=== PATIENT | female | born 1985 | race Caucasian/White ===

== ENCOUNTER 2017-07-02 16:06 | Emergency (ER) | payer BC ==
--- NOTE | 2017-07-02 18:26 | ED ---
- HPI Summary HPI Summary: 32 F at 7 weeks LMP may 10 at presents with vaginal bleeding and cramping for past 2 days. She states she has been passing clots. She states she is soaking a pad every 2 hours. She denies any dizziness. she denies any nausea vomiting. She denies any dysuria. She denies any flank pain. She states the cramping is intermittent. She has not taken anything for her symptoms. She denies any abnormal vaginal discharge. She has a confirmed by urine stick. She's never had an ultrasound before. She is currently on amoxicillin for uti starting Tuesday and will take last dose tuesday. previous urine culture grew strept b so amoxicillin should work for such. - History of Current Complaint Chief Complaint: EDOBProblems Stated Complaint: BLEEDING/PREG 7WKS Time Seen by Provider: 07/02/17 18:04 Pain Intensity: 2 - Assessment SAB: 0 IEA: 0 - Additional Pertinent History Maternal Blood Type and Rh: O Negative - Allergies/Home Medications Allergies/Adverse Reactions: Allergies Allergy/AdvReac Type Severity Reaction Status Date / Time cefadroxil AdvReac Severe Vomiting Verified 07/02/17 16:34 Home Medications: Home Medications Amoxicillin PO (*) [Amoxicillin 500 MG CAP*] 500 mg PO BID 07/02/17 [History Confirmed 07/02/17] Vit 108/Iron/Folic AC [ One Tablet] 1 each PO DAILY 07/02/17 [ History Confirmed 07/02/17] PMH/Surg Hx/FS Hx/Imm Hx Endocrine/Hematology History: Denies: Hx Anticoagulant Therapy Respiratory History: Reports: Hx Asthma Infectious Disease History: No Infectious Disease History: Denies: Traveled Outside the [place] in Last 30 Days - Family History Known Family History: Positive: Hypertension - Social History Alcohol Use: None Substance Use Type: Reports: None Smoking Status (MU): Never Smoked Tobacco Have You Smoked in the Last Year: No Review of Systems Negative: Fever Negative: Chest Pain Negative: Shortness Of Breath Positive: Abdominal Pain, Other - vaginal bleeding All Other Systems Reviewed And Are Negative: Yes Physical Exam - Physical Exam Triage Information Reviewed: Yes Vital Signs Reviewed: Yes Appearance: Positive: Well-Appearing Skin: Positive: Warm, Dry Head/Face: Positive: Normal Head/Face Inspection Eyes: Positive: Normal, Conjunctiva Clear Respiratory/Lung Sounds: Positive: Clear to Auscultation, Breath Sounds Present Cardiovascular: Positive: Normal, RRR Abdomen Description: Positive: Nontender, Soft Bowel Sounds: Positive: Present Musculoskeletal: Positive: Normal Neurological: Positive: Normal Psychiatric: Positive: Normal - Vaginal Assessment Examined By: Letty Torres Dilation Description: Fingertip Diagnostics - Vital Signs Vital Signs Temp Pulse Resp BP Pulse Ox 07/02/17 16:28 98.7 F 95 16 127/74 98 - Laboratory Result Diagrams: 07/02/17 18:24 07/02/17 18:24 Lab Statement: Any lab studies that have been ordered have been reviewed, and results considered in the medical decision making process. - Ultrasound No standard instances Ultrasound Interpretation: Positive (See Comments) - IMPRESSION: 1. No IUP visualized. Despite absence of a suspicious adnexal region lesion presence of an ectopic is not entirely excluded without a visualized IUP. Correlate with clinical assessment and serial beta-hCG. 2. Thickened endometrium. 3. Negative for free fluid. Ultrasound Interpretation Completed By: Radiologist Course/Dx - Course Course Of Treatment: 32 F at 7 weeks LMP may 10 at presents with vaginal bleeding and cramping for past 2 days. She states she has been passing clots. She states she is soaking a pad every 2 hours. She denies any dizziness. she denies any nausea vomiting. She denies any dysuria. She denies any flank pain. She states the cramping is intermittent. She has not taken anything for her symptoms. She denies any abnormal vaginal discharge. She has a confirmed by urine stick. She's never had an ultrasound before. She is currently on amoxicillin for uti starting Tuesday and will take last dose tuesday. previous urine culture grew strept b so amoxicillin should work for such. On exam abdomen soft nontender. Cervix is a little dilated. HCG is 4000. Urine may be infection but is currently on amoxicillin so will wait for final cultures. Ultrasound does not show an IUP but with amount of bleeding and exam believe that it was a spontaneous miscarriage rather than ectopic. still will have follow-up with OB to trend the . Patient understands agrees with plan. - Differential Diagnosis/HQI/PQRI: Spontaneous , Threatened , UTI , Vaginal Bleeding - Diagnoses Provider Diagnoses: Miscarriage Discharge - Sign-Out/Discharge Documenting (check all that apply): Discharge/Admit/Transfer - Discharge Plan Condition: Good Disposition: HOME Patient Education Materials: Miscarriage (ED) Referrals: No Primary Care Phys,NOPCP [Primary Care Provider] - Additional Instructions: Can take Tylenol for pain every 6 hours Follow up with obgyn on tuesday as will need repeat lab work Return to ED if develop severe abdominal pain, fever, severe bleeding with symptoms such as lightheadedness or any new or worsening symptoms - Billing Disposition and Condition Condition: GOOD Disposition: HOME
[2017-07-02 18:34] LABS: ABS Basophils 0 10^3/ul (0-0.2); ABS Eosinophils 0.2 10^3/ul (0-0.6); ABS Lymphocytes 2.2 10^3/ul (1.0-4.8); ABS Monocytes 0.6 10^3/ul (0-0.8); ABS Neutrophils 8.8 10^3/ul (1.5-7.7); ABS Nucleated RBC 0 10^3/ul; Eosinophil % 1.4 % (0-6); Hematocrit 43 % (35-47); Hemoglobin 14.4 g/dl (12.0-16.0); Lymphocyte % 18.9 % (25-47); Mean Corpuscular HGB Conc 34 g/dl (31-36); Mean Corpuscular Hemoglobin 27 pg (27-31); Mean Corpuscular Volume 80 fL (80-97); Nucleated Red Blood Cells % 0; Platelet Count 155 10^3/ul (150-450); Red Blood Count 5.32 10^6/ul (4.0-5.4); Red Cell Distribution Width 15 % (10.5-15); White Blood Count 11.8 10^3/ul (3.5-10.8)
[2017-07-02 18:43] LABS: INR 0.98 (0.77-1.02)
[2017-07-02 18:58] LABS: EGFR Non-African American 108.2 (>60)
[2017-07-02] MEDS ORDERED: RHO D Immune Globulin (HUMAN)* 300 MCG = 1,500 I.U. INJ IM SCH (19:00)
[2017-07-02 19:44] LABS: Urine Appearance Cloudy; Urine Blood 3+ (Negative); Urine Color Yellow; Urine Ketones Trace (Negative); Urine Protein 2+(100 mg/dL) (Negative); Urine Urobilinogen Negative (Negative)
--- NOTE | 2017-07-02 20:02 | RAD ---
Indication: 7 weeks . Cramping and bleeding. Comparison: No relevant prior exams available on the [facility] [facility] for comparison. Technique: Transvaginal obstetrical ultrasound. Report: No intrauterine gestational sac visualized. Negative for significant fluid within the endometrial cavity. Thickened 2.6 cm endometrium with mildly increased vascularity. Negative for free pelvic fluid. 4.3 x 1.5 x 2.5 cm RIGHT ovary with documented vascular flow is unremarkable. 2.5 x 2.5 x 1.8 cm LEFT ovary with documented vascular flow is unremarkable. No visualized extra ovarian adnexal region lesions evident. IMPRESSION: 1. No IUP visualized. Despite absence of a suspicious adnexal region lesion presence of an ectopic is not entirely excluded without a visualized IUP. Correlate with clinical assessment and serial beta-hCG. 2. Thickened endometrium. 3. Negative for free fluid.
[2017-07-02 20:13] VITALS: BP 123/71
--- NOTE | 2017-07-05 07:10 | ED ---
Progress - Progress Note Progress Note: Patient's urine reveals 10-25,000 of Escherichia coli. Patient was seen for miscarriage. No antibiotics prescribed as patient was afebrile and without any other signs of infectious pathology. With this low count of bacteria in the urine, no antibiotic treatment is necessary at this time. Patient was advised to have close follow-up. No further action at this time. Course/Dx - Course Course Of Treatment: 32 F at 7 weeks LMP may 10 at presents with vaginal bleeding and cramping for past 2 days. She states she has been passing clots. She states she is soaking a pad every 2 hours. She denies any dizziness. she denies any nausea vomiting. She denies any dysuria. She denies any flank pain. She states the cramping is intermittent. She has not taken anything for her symptoms. She denies any abnormal vaginal discharge. She has a confirmed by urine stick. She's never had an ultrasound before. She is currently on amoxicillin for uti starting Tuesday and will take last dose tuesday. previous urine culture grew strept b so amoxicillin should work for such. On exam abdomen soft nontender. Cervix is a little dilated. HCG is 4000. Urine may be infection but is currently on amoxicillin so will wait for final cultures. Ultrasound does not show an IUP but with amount of bleeding and exam believe that it was a spontaneous miscarriage rather than ectopic. still will have follow-up with OB to trend the . Patient understands agrees with plan. - Diagnoses Provider Diagnoses: Miscarriage Discharge - Sign-Out/Discharge Documenting (check all that apply): Post-Discharge Follow Up - Discharge Plan Condition: Good Disposition: HOME Patient Education Materials: Miscarriage (ED) Referrals: No Primary Care Phys,NOPCP [Primary Care Provider] - Additional Instructions: Can take Tylenol for pain every 6 hours Follow up with obgyn on tuesday as will need repeat lab work Return to ED if develop severe abdominal pain, fever, severe bleeding with symptoms such as lightheadedness or any new or worsening symptoms - Billing Disposition and Condition Condition: GOOD Disposition: HOME
== END 2017-07-02 20:25 | disposition home or self-care (01) ==
LOC: ED 16:06
DX: O03.9 Complete or unspecified spontaneous abortion without complication (principal); B96.20 Unspecified Escherichia coli [E. coli] as the cause of diseases classified elsewhere; J45.909 Unspecified asthma, uncomplicated; Z88.1 Allergy status to other antibiotic agents
CPT/HCPCS: 36415; 76817; 80053; 81003; 81015; 84702; 85025; 85610; 85730; 86900; 86901; 87077; 87086; 87186; 87480; 87491; 87510; 87591; 87661; 96372; 99283; J2790

== ENCOUNTER 2018-06-21 18:54 | Emergency (ER) | payer BC ==
[2018-06-21] MEDS ORDERED: NS 0.9% 1000 ML** 1,000 ML IV ONE (20:17)
--- NOTE | 2018-06-21 20:29 | ED ---
Palpitations / Dysrhythmia - HPI Summary HPI Summary: The patient is a 33 year old female who is presenting to the [facility] with a chief complaint of palpitations. The patient states that she has had near syncopal episodes and describes her heart rate as "racing." Other symptoms reported include dizziness, and lightheadedness during the episodes of palpitations. She describes the palpitations as constant, but she is not having an episode at this time. Symptoms are similar to an episode of palpitations in March, however she did not see a provider for the symptoms. No medications are being taken by the patient at this time. Fluid intake is reported to be moral. Symptoms normally occur when the patient is standing as per patient report. Caffeine intake is reported to be 1 coffee a day. Her last physical check up was reported to be at the end of April and was done by her primary care physician. Patient has no PMHx of anxiety or panic attacks. The pain is rated to be _/10 in severity. Symptoms are alleviated by nothing. - History of Current Complaint Chief Complaint: EDDysrhythmPalp Time Seen by Provider: 06/21/18 20:05 Hx Obtained From: Patient Timing: Constant Character: Fast Aggravating: Other - Standing position Alleviating: Nothing Associated Signs & Symptoms: Lightheadedness, Dizzy, Syncope - Near-Syncope - Allergy/Home Medications Allergies/Adverse Reactions: Allergies Allergy/AdvReac Type Severity Reaction Status Date / Time cefadroxil AdvReac Severe Vomiting Verified 06/21/18 18:59 PMH/Surg Hx/FS Hx/Imm Hx Endocrine/Hematology History: Denies: Hx Anticoagulant Therapy Respiratory History: Reports: Hx Asthma Sensory History: Denies: Hx Deafness Opthamlomology History: Denies: Hx Legally Blind EENT History: Denies: Hx Deafness Infectious Disease History: No Infectious Disease History: Denies: Traveled Outside the [place] in Last 30 Days - Family History Known Family History: Positive: Hypertension Family History: FHX reviewed and noncontributory - Social History Occupation: Employed Full-time Lives: With Family Alcohol Use: None Substance Use Type: Reports: None Smoking Status (MU): Never Smoked Tobacco Have You Smoked in the Last Year: No Review of Systems Constitutional: Negative Eyes: Negative ENT: Negative Positive: Palpitations Respiratory: Negative Gastrointestinal: Negative Genitourinary: Negative Musculoskeletal: Negative Skin: Negative Neurological: Other - Lightheadedness; Dizziness Positive: Syncope - Near-Syncope Psychological: Normal All Other Systems Reviewed And Are Negative: Yes Physical Exam - Summary Physical Exam Summary: VITAL SIGNS: Reviewed. GENERAL: Patient is a well-developed and nourished (FEMALE) who is lying comfortable in the stretcher. Patient is not in any acute respiratory distress. HEAD AND FACE: No signs of trauma. No ecchymosis, hematomas or skull depressions. No sinus tenderness. EYES: PERRLA, EOMI x 2, No injected conjunctiva, no nystagmus. EARS: Hearing grossly intact. Ear canals and tympanic membranes are within normal limits. MOUTH: Oropharynx within normal limits. NECK: Supple, trachea is midline, no adenopathy, no JVD, no carotid bruit, no c- spine tenderness, neck with full ROM. CHEST: Symmetric, no tenderness at palpation LUNGS: Clear to auscultation bilaterally. No wheezing or crackles. CVS: Regular tachycardia ABDOMEN: Soft, non-tender. No signs of distention. No rebound no guarding, and no masses palpated. Bowel sounds are normal. EXTREMITIES: FROM in all major joints, no edema, no cyanosis or clubbing. NEURO: Alert and oriented x 3. No acute neurological deficits. Speech is normal and follows commands. SKIN: Dry and warm Triage Information Reviewed: Yes Vital Signs On Initial Exam: Initial Vitals Temp Pulse Resp BP Pulse Ox 98.5 F 120 18 133/82 98 06/21/18 18:55 06/21/18 18:55 06/21/18 18:55 06/21/18 18:55 06/21/18 18:55 Vital Signs Reviewed: Yes Diagnostics - Vital Signs Vital Signs Temp Pulse Resp BP Pulse Ox 06/21/18 18:55 98.5 F 120 18 133/82 98 - Laboratory Result Diagrams: 06/21/18 20:28 06/21/18 20:28 Lab Statement: Any lab studies that have been ordered have been reviewed, and results considered in the medical decision making process. - EKG 1905 Summary of EKG Findings: EKG at 1905 reveals 119 bpm (sinus tachycardia). Normal [place]. Normal Intervals. No ischemic changes. Course/Dx - Course Course Of Treatment: The patient is a 33 year old female who is presenting to the [facility] with a chief complaint of palpitations. In the ED Course the patient was given an EKG prior to intial examination that showed sinus tachycardia at 119 bpm. She reports of lightheadedness, dizziness, and near syncope during her episode of palpitations. Patient has no hx of anxiety or panic attacks. Upon Reevaluation at 2205, the patient states that she is feeling better. During her entire stay in the the [facility], the patient remained at sinus rhythm. The patient will be discharged home with dx of palpitations. She is agreeable to this plan. - Diagnoses Provider Diagnoses: Palpitations Discharge - Sign-Out/Discharge Documenting (check all that apply): Patient Departure - Discharge Home Patient Received Moderate/Deep Sedation with Procedure: No - Discharge Plan Condition: Stable Disposition: HOME Patient Education Materials: Heart Palpitations (ED) Referrals: Jaz Canales MD [Primary Care Provider] - Additional Instructions: RETURN TO THE EMERGENCY DEPARTMENT FOR CHANGING OR WORSENING SYMPTOMS. FOLLOW UP WITH YOUR PRIMARY CARE PROVIDER WITHIN 1 to 2 DAYS. - Attestation Statements Document Initiated by Artis: Yes Documenting Scribe: Milad Russo Provider For Whom Artis is Documenting (Include Credential): Dr. Floridalma Torres Scribe Attestation: Milad Tang, evelin for Dr. Floridalma Torres on 06/21/18 at 2209. Status of Scribe Document: Ready
[2018-06-21 20:35] LABS: ABS Basophils 0 10^3/ul (0-0.2); ABS Eosinophils 0.1 10^3/ul (0-0.6); ABS Monocytes 0.5 10^3/ul (0-0.8); ABS Neutrophils 4.6 10^3/ul (1.5-7.7); ABS Nucleated RBC 0 10^3/ul; Eosinophil % 1.1 %; Hematocrit 44 % (33-41); Hemoglobin 14.7 g/dL (12.0-16.0); Lymphocyte % 16.7 %; Mean Corpuscular HGB Conc 34 g/dL (31-36); Mean Corpuscular Hemoglobin 28 pg (27-31); Mean Corpuscular Volume 84 fL (80-97); Mean Platelet Volume 8.5 fL (7.4-10.4); Nucleated Red Blood Cells % 0; Platelet Count 164 10^3/uL (150-450); Red Blood Count 5.25 10^6 /uL (3.70-4.87); Red Cell Distribution Width 14 % (10.5-15); White Blood Count 6.2 10^3/uL (3.5-10.8)
[2018-06-21 20:46] LABS: Activated Partial Thrombo Time 33.2 seconds (26.0-36.3); INR 1.07 (0.77-1.02)
[2018-06-21 20:52] LABS: ALT 14 U/L (7-52); AST 18 U/L (13-39); Albumin 4.7 g/dL (3.2-5.2); Albumin/Globulin Ratio 1.7 (1-3); Alkaline Phosphatase 55 U/L (34-104); Anion Gap 9 mmol/L (2-11); Blood Urea Nitrogen 12 mg/dL (6-24); CO2 Carbon Dioxide 24 mmol/L (22-32); Calcium 9.6 mg/dL (8.6-10.3); Chloride 105 mmol/L (101-111); EGFR African American 130.1 (>60); EGFR Non-African American 107.5 (>60); Globulin 2.8 g/dL (2-4); Glucose 87 mg/dL (70-100); Potassium 4.3 mmol/L (3.5-5.0); Sodium 138 mmol/L (135-145); Total Protein 7.5 g/dL (6.4-8.9)
[2018-06-21 20:58] LABS: HCG Pregnancy < 0.60 mIU/mL
[2018-06-21 21:13] LABS: TSH (Thyroid Stimulating Horm) 2.49 mcIU/mL (0.34-5.60)
[2018-06-21 23:14] VITALS: BP 97/64
== END 2018-06-21 23:12 | disposition home or self-care (01) ==
LOC: ED 18:54
DX: R00.2 Palpitations (principal); J45.909 Unspecified asthma, uncomplicated; Z88.3 Allergy status to other anti-infective agents
CPT/HCPCS: 36415; 80053; 83735; 84443; 84484; 84702; 85025; 85610; 85730; 93005; 96360; 96361; 99282